=== PATIENT | male | born 1985 | race African-American/Black ===

== ENCOUNTER 2017-12-05 23:18 | Inpatient (IN) | payer MEDICAID ==
[~2017-12-05] VITALS: Ht 177.8 cm; Wt 75.8 kg
[2017-12-05] MEDS ORDERED: TRAZ-144 PO (23:22)
[2017-12-05] MEDS ORDERED: GUAN1TAB22 PO (23:22)
[2017-12-05 23:42] LABS: BASOPHILS % (AUTO) 2.6 % (0.0-2.0); EOSINOPHILS % (AUTO) 3.3 % (1.0-6.0); HEMATOCRIT 41.2 % (41-53); HEMOGLOBIN 13.9 g/dL (13.5-17.5); LYMPHOCYTES % (AUTO) 50.1 % (22.0-44.0); MEAN CORPUSCULAR HEMOGLOBIN 28.1 pg (26.0-34.0); MEAN CORPUSCULAR HGB CONC 33.8 G/dL (31.0-37.0); MEAN CORPUSCULAR VOLUME 83 fL (80-100); MONOCYTES # (AUTO) 0.6 K/uL (0.1-1.0); MONOCYTES % (AUTO) 9.8 % (2.0-9.0); NEUTROPHILS # (AUTO) 2.1 K/uL (1.8-7.7); NEUTROPHILS % (AUTO) 34.2 % (40.0-70.0); PLATELET COUNT (AUTO) 279 K/uL (150-450); RED BLOOD CELL COUNT(AUTO) 4.95 MIL/uL (4.50-5.90); RED CELL DISTRIBUTION WIDTH 12.8 % (11.5-14.5)
[2017-12-06] MEDS ORDERED: DiphenhydrAMINE HCL 50 MG/ML VIAL IM ONE
[2017-12-06] MEDS ORDERED: LORazepam 2 MG/ML VIAL IM ONE
[2017-12-06] MEDS ORDERED: HALOPERIDOL LACTATE 5 MG/ML VIAL IM ONE
[2017-12-06 00:03] LABS: ANION GAP 6 mmol/L (8-16); CALCIUM, TOTAL 8.9 mg/dL (8.8-10.5); CARBON DIOXIDE 33 mmol/L (22-29); CHLORIDE 100 mmol/L (98-107); CREATININE 1.44 mg/dL (0.60-1.30); GLOMERULAR FILTR. RATE CALC > 60 mL/min (>60); GLUCOSE,RANDOM 104 mg/dL (70-110); POTASSIUM 4.2 mmol/L (3.5-5.1); SODIUM SERUM 139 mmol/L (136-145); UREA NITROGEN, BLOOD 19 mg/dL (7-18)
[2017-12-06 00:10] LABS: AMPHET/METH SCREEN,URINE NEGATIVE (NEGATIVE); BARBITURATE SCREEN, URINE NEGATIVE (NEGATIVE); BENZODIAZEPINES SCREEN,URINE NEGATIVE (NEGATIVE); CANNABINOID SCREEN,URINE NEGATIVE (NEGATIVE); COCAINE SCREEN,URINE NEGATIVE (NEGATIVE); METHADONE SCREEN, URINE NEGATIVE (NEGATIVE); OPIATE SCREEN,URINE NEGATIVE (NEGATIVE)
[2017-12-06 00:13] LABS: ALANINE AMINOTRANSFERASE 49 U/L (12-78); ALKALINE PHOSPHATASE 63 U/L (46-116); ASPARTATE AMINOTRANSFERASE 29 U/L (15-37); BILIRUBIN,TOTAL 0.3 mg/dL (0.1-1.0)
[2017-12-06 00:26] LABS: PHENCYCLIDINE SCREEN,URINE NEGATIVE (NEGATIVE)
[2017-12-06] MEDS ORDERED: MAG HYDROX/AL HYDROX/SIMETH ES 30 ML SUSPENSION UDCUP PO PRN (01:00)
[2017-12-06] MEDS ORDERED: ACETAMINOPHEN 325 MG TABLET PO PRN ×2 (01:00→15:15)
[2017-12-06] MEDS ORDERED: MAGNESIUM HYDROXIDE SUSPENSION 30 ML UDCUP PO PRN (01:00)
[2017-12-06] MEDS ORDERED: HALOPERIDOL 5 MG TABLET PO PRN (01:00)
[2017-12-06] MEDS ORDERED: ZOLPIDEM TARTRATE 10 MG TABLET PO PRN (01:00)
[2017-12-06 03:02] LABS: APPEARANCE,URINE CLEAR (CLEAR); BILIRUBIN,URINE NEGATIVE (NEGATIVE); GLUCOSE, URINE (UA) NEGATIVE (NEGATIVE); KETONES,URINE NEGATIVE (NEGATIVE); LEUKOCYTE ESTERASE ,URINE NEGATIVE (NEGATIVE); NITRATE,URINE NEGATIVE (NEGATIVE); OCCULT BLOOD,URINE NEGATIVE (NEGATIVE); PH,URINE 6.5 (5.0-8.0); PROTEIN,URINE NEGATIVE (NEGATIVE); UROBILINOGEN,URINE 0.2 mg/dL (<=1.0)
[2017-12-06 03:52] VITALS: BP 124/68
[2017-12-06] MEDS ORDERED: IBUPROFEN 400 MG TABLET PO PRN (15:15)
[2017-12-06] MEDS: RisperiDONE 1 MG TABLET PO SCH (18:00)
[2017-12-06 20:46] VITALS: BP 116/55
[2017-12-07 03:18] VITALS: BP 123/67
[2017-12-07] MEDS: LORazepam 2 MG TABLET PO PRN ×2 (03:18→10:10)
[2017-12-07 09:27] VITALS: BP 109/57
[2017-12-07] MEDS: RisperiDONE 1 MG TABLET PO SCH ×2 (10:09→16:17)
[2017-12-07 15:35] VITALS: BP 112/66
[2017-12-07 16:35] VITALS: BP 123/71
[2017-12-07] MEDS: TraZODone HCL 50 MG TABLET PO SCH (20:46)
[2017-12-08 09:26] VITALS: BP 133/88
[2017-12-08] MEDS: RisperiDONE 1 MG TABLET PO SCH ×2 (09:28→18:04)
[2017-12-08 16:55] VITALS: BP 132/85
[2017-12-08] MEDS ORDERED: DiphenhydrAMINE HCL 25 MG CAPSULE PO ONE (18:30)
[2017-12-08] MEDS: TraZODone HCL 50 MG TABLET PO SCH (20:25)
[2017-12-09 06:30] VITALS: BP 132/79
[2017-12-09] MEDS ORDERED: BENZTROPINE MESYLATE 2 MG TABLET PO SCH (09:00)
[2017-12-09] MEDS: RisperiDONE 1 MG TABLET PO SCH (09:08)
[2017-12-09] MEDS ORDERED: RISP1 PO (10:06)
[2017-12-09] MEDS ORDERED: BENZ2TAB10 PO (10:06)
[2017-12-09 12:38] VITALS: BP 131/96
== END 2017-12-09 13:10 | disposition home or self-care (01) | DRG 750 ==
LOC: EMS 23:19 → 3EI 12-06 02:25
PROVIDERS: ADMIT Psychiatry & Neurology Psychiatry; ATTEND Psychiatry & Neurology Psychiatry
DX: F20.0 Paranoid schizophrenia (principal); N17.9 Acute kidney failure, unspecified; I10 Essential (primary) hypertension; F41.9 Anxiety disorder, unspecified; F15.90 Other stimulant use, unspecified, uncomplicated; F32.9 Major depressive disorder, single episode, unspecified; F90.9 Attention-deficit hyperactivity disorder, unspecified type; G47.00 Insomnia, unspecified; Z59.0 Homelessness; Z79.899 Other long term (current) drug therapy
CPT/HCPCS: 99285; G0480; J1200; J1630; J2060